=== PATIENT | female | born 1960 | race Caucasian/White ===

== ENCOUNTER 2017-06-12 12:23 | Emergency (ER) | payer OTHER ==
[2017-06-12 12:32] VITALS: TEMP 98.1
[2017-06-12] MEDS ORDERED: NS 1,000 ML IV ONE (13:07)
[2017-06-12] MEDS ORDERED: HYDROmorphONE/DILAUDID 1 MG/ML INJ IVP ONE (13:07)
[2017-06-12] MEDS ORDERED: ONDANSETRON 4 MG/2 ML VIAL IVP ONE (13:07)
--- NOTE | 2017-06-12 13:13 | EDPHY ---
H & P Stated Complaint: pt with abd pain Time Seen by Provider: 06/12/17 12:58 HPI/ROS: CHIEF COMPLAINT: Abdominal pain HISTORY OF PRESENT ILLNESS: The patient is a 56-year-old female who comes to the emergency department complaining of left upper quadrant abdominal pain for the last 6 hr. 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 She also has a history of lupus and COPD. She is not currently on steroids. She states that she has vomited twice white frothy today. She states that she feels like she needs to have a bowel movement but cannot. She has not passed gas today but did yesterday. No fever. No distension. No tenderness. She has a history of hysterectomy and tubal ligation as well as cholecystectomy. She states that most of her previous medical treatment was done in [place]. I am able to view was CT report from 18 months ago that states her chief complaint had been abdominal pain for a year as well as bloody stool. She states that she has not had any blood in her stool today. She has not had a fever. She denies history of hemorrhoids. REVIEW OF SYSTEMS: Constitutional: denies: chills, fever, recent illness, recent injury EENTM: denies: blurred vision, double vision, nose congestion Respiratory: denies: cough, shortness of breath Cardiac: denies: chest pain, irregular heart rate, lightheadedness, palpitations Gastrointestinal/Abdominal: See HPI Genitourinary: denies: dysuria, frequency, hematuria, pain Musculoskeletal: denies: joint pain, muscle pain Skin: denies: lesions, rash, jaundice, bruising Neurological: denies: headache, numbness, paresthesia, tingling, dizziness, weakness Hematologic/Lymphatic: denies: blood clots, easy bleeding, easy bruising Immunologic/allergic: denies: HIV/AIDS, transplant EXAM: GENERAL: Well-appearing, well-nourished and in no acute distress. HEAD: Atraumatic, normocephalic. EYES: Pupils equal round and reactive to light, extraocular movements intact, sclera anicteric, conjunctiva are normal. ENT: TMs normal, nares patent, oropharynx clear without exudates. Moist mucous membranes. NECK: Normal range of motion, supple without lymphadenopathy or JVD. LUNGS: Breath sounds clear to auscultation bilaterally and equal. No wheezes rales or rhonchi. HEART: Regular rate and rhythm without murmurs, rubs or gallops. ABDOMEN: Soft, nontender, normoactive bowel sounds. No guarding, no rebound. No masses appreciated. BACK: No CVA tenderness, no spinal tenderness, step-offs or deformities EXTREMITIES: Normal range of motion, no pitting or edema. No clubbing or cyanosis. NEUROLOGICAL: Cranial nerves II through XII grossly intact. Normal speech, normal gait. 5/5 strength, normal movement in all extremities, normal sensation PSYCH: Normal mood, normal affect. SKIN: Warm, dry, normal turgor, no visible rashes or lesions. Source: Patient Exam Limitations: No limitations - Personal History Current Tetanus/Diphtheria Vaccine: Yes - Medical/Surgical History Hx Asthma: No Hx Chronic Respiratory Disease: Yes Hx Diabetes: No Hx Cardiac Disease: No Hx Renal Disease: No Hx Cirrhosis: No Hx Alcoholism: No Hx HIV/AIDS: No Hx Splenectomy or Spleen Trauma: No Other PMH: Chronic abdominal pain, aortic bypass/lupus/copd. Hysterectomy, tubal ligation, cholecystectomy - Family History Significant Family History: No pertinent family hx - Social History Smoking Status: Current every day smoker Alcohol Use: Sober Constitutional: Initial Vital Signs Temperature (C) 36.7 C 06/12/17 12:29 Heart Rate 105 H 06/12/17 12:29 Respiratory Rate 20 06/12/17 12:29 Blood Pressure 92/71 L 06/12/17 12:29 O2 Sat (%) 96 06/12/17 12:29 O2 Delivery Mode Room Air Allergies/Adverse Reactions: alendronate sodium [From Fosamax] Allergy (Verified 06/12/17 12:25) erythromycin base Allergy (Verified 06/12/17 12:25) Penicillins Allergy (Verified 06/12/17 12:25) risedronate sodium [From Actonel] Allergy (Verified 06/12/17 12:25) Home Medications: Medication Instructions Recorded Acyclovir 06/12/17 Atorvastatin Calcium 06/12/17 Bromfenac Sodium 06/12/17 DIAZEPAM 06/12/17 Doxycycline Hyclate 06/12/17 Dulera 100 Mcg/5 Mcg Inhaler 06/12/17 Hydroxychloroquine Sulfate 06/12/17 Plavix 01/04/18 Ventolin Hfa 06/12/17 traMADol 06/12/17 Medical Decision Making - Diagnostics Imaging Results: Imaging Impressions Abdomen CT 06/12/17 13:07 Impression: 1. Moderate constipation. 2. Status post cholecystectomy with mild prominence of the common bile duct and intrahepatic biliary duct. 3. Left renal atrophy. No evidence for hydronephrosis. 4. Evidence of atherosclerotic disease in the abdominal aorta without evidence for aneurysmal dilatation and evidence of prior surgery. Results called and discussed with Dr. Chandu Salazar on 06/12/2017, 14:29. Imaging: Discussed imaging studies w/ bingo caller Radiologist ED Course/Re-evaluation: 2:30 p.m. we discussed the lab and imaging results. The patient feels reassured. Her abdominal exam is benign. She states that this is often what happened and she is told that is from lupus. She confirms that she has had pain chronically in her abdomen for years the tends to wax and wane. She has not yet provided a urine sample. We will continue to hydrate and observe. 3:50 p.m. the patient's abdominal exam remains benign. She has a small amount of blood in her urine. She will follow up with her primary doctor. No sign of infection. Differential Diagnosis: Partial list of the Differential diagnosis considered include but were not limited to; peptic ulcer disease, obstruction, the aneurysm and although unlikely based on the history and physical exam, I also considered appendicitis , perforated ulcer, urinary tract infection, proctitis. I discussed these differential diagnoses and the plan with the patient as well as the usual and expected course. The patient understands that the diagnosis is provisional and that in medicine we are not always correct and that further workup is often warranted. Usual and customary warnings were given. All of the patient's questions were answered. The patient was instructed to return to the emergency department should the symptoms at all worsen or return, otherwise to followup with the physician as we discussed. - Data Points Laboratory Results: Laboratory Results 06/12/17 13:22 06/12/17 13:22 06/12/17 06/12/17 06/12/17 15:25 13:22 13:22 WBC RBC Hgb Hct MCV MCH MCHC RDW Plt Count MPV Neut % (Auto) Lymph % (Auto) Cole % (Auto) Eos % (Auto) Baso % (Auto) Nucleat RBC Rel Count Absolute Neuts (auto) Absolute Lymphs (auto) Absolute Monos (auto) Absolute Eos (auto) Absolute Basos (auto) Absolute Nucleated RBC Immature Gran % Immature Gran # PT 11.9 SEC L SEC (12.0-15.0) INR 0.86 (0.83-1.16) APTT 23.6 SEC SEC (23.0-38.0) Sodium 142 mEq/L mEq/L (134-144) Potassium 4.7 mEq/L mEq/L (3.5-5.2) Chloride 110 mEq/L mEq/L (97-110) Carbon Dioxide 23 mEq/l mEq/l (22-31) Anion Gap 9 mEq/L mEq/L (8-16) BUN 13 mg/dL mg/dL (7-23) Creatinine 0.8 mg/dL mg/dL (0.6-1.0) Estimated GFR > 60 Glucose 105 mg/dL H mg/dL (70-100) Calcium 9.6 mg/dL mg/dL (8.5-10.4) Total Bilirubin 0.3 mg/dL mg/dL (0.1-1.4) Conjugated Bilirubin 0.2 mg/dL mg/dL (0.0-0.5) Unconjugated Bilirubin 0.1 mg/dL mg/dL (0.0-1.1) AST 40 IU/L IU/L (14-46) ALT 61 IU/L H IU/L (9-52) Alkaline Phosphatase 100 IU/L IU/L (38-126) Total Protein 6.3 g/dL g/dL (6.3-8.2) Albumin 3.9 g/dL g/dL (3.5-5.0) Lipase 183 IU/L IU/L (23-300) Urine Color PALE YELLOW Urine Appearance CLEAR Urine pH 8.0 H (5.0-7.5) Ur Specific [place] 1.033 H (1.002-1.030) Urine Protein NEGATIVE (NEGATIVE) Urine Ketones NEGATIVE (NEGATIVE) Urine Blood NEGATIVE (NEGATIVE) Urine Nitrate NEGATIVE (NEGATIVE) Urine Bilirubin NEGATIVE (NEGATIVE) Urine Urobilinogen NEGATIVE EU EU (0.2-1.0) Ur Leukocyte Esterase NEGATIVE (NEGATIVE) Urine RBC 5-10 /hpf H /hpf (0-3) Urine WBC 1-3 /hpf /hpf (0-3) Ur Epithelial Cells TRACE /lpf /lpf (NONE-1+) Urine Glucose NEGATIVE (NEGATIVE) 06/12/17 13:22 WBC 15.09 10^3/uL H 10^3/uL (3.80-9.50) RBC 4.86 10^6/uL 10^6/uL (4.18-5.33) Hgb 15.9 g/dL g/dL (12.6-16.3) Hct 45.3 % % (38.0-47.0) MCV 93.2 fL fL (81.5-99.8) MCH 32.7 pg pg (27.9-34.1) MCHC 35.1 g/dL g/dL (32.4-36.7) RDW 11.9 % % (11.5-15.2) Plt Count 250 10^3/uL 10^3/uL (150-400) MPV 10.1 fL fL (8.7-11.7) Neut % (Auto) 87.4 % H % (39.3-74.2) Lymph % (Auto) 8.0 % L % (15.0-45.0) Cole % (Auto) 3.7 % L % (4.5-13.0) Eos % (Auto) 0.1 % L % (0.6-7.6) Baso % (Auto) 0.3 % % (0.3-1.7) Nucleat RBC Rel Count 0.0 % % (0.0-0.2) Absolute Neuts (auto) 13.18 10^3/uL H 10^3/uL (1.70-6.50) Absolute Lymphs (auto) 1.21 10^3/uL 10^3/uL (1.00-3.00) Absolute Monos (auto) 0.56 10^3/uL 10^3/uL (0.30-0.80) Absolute Eos (auto) 0.01 10^3/uL L 10^3/uL (0.03-0.40) Absolute Basos (auto) 0.05 10^3/uL 10^3/uL (0.02-0.10) Absolute Nucleated RBC 0.00 10^3/uL 10^3/uL (0-0.01) Immature Gran % 0.5 % % (0.0-1.1) Immature Gran # 0.08 10^3/uL 10^3/uL (0.00-0.10) PT INR APTT Sodium Potassium Chloride Carbon Dioxide Anion Gap BUN Creatinine Estimated GFR Glucose Calcium Total Bilirubin Conjugated Bilirubin Unconjugated Bilirubin AST ALT Alkaline Phosphatase Total Protein Albumin Lipase Urine Color Urine Appearance Urine pH Ur Specific [place] Urine Protein Urine Ketones Urine Blood Urine Nitrate Urine Bilirubin Urine Urobilinogen Ur Leukocyte Esterase Urine RBC Urine WBC Ur Epithelial Cells Urine Glucose Medications Given: Discontinued Medications Hydromorphone HCl (Dilaudid) 0.5 mg IVP EDNOW ONE Stop: 06/12/17 13:08 Last Admin: 06/12/17 13:24 Dose: 0.5 mg Sodium Chloride (Ns) 1,000 mls @ 0 mls/hr IV EDNOW ONE; Wide Open PRN Reason: Protocol Stop: 06/12/17 13:08 Last Admin: 06/12/17 13:24 Dose: 1,000 mls Ondansetron HCl (Zofran) 4 mg IVP EDNOW ONE Stop: 06/12/17 13:08 Last Admin: 06/12/17 13:24 Dose: 4 mg Departure - Departure Disposition: Home, Routine, Self-Care Clinical Impression: Abdominal pain Qualifiers: Abdominal location: left upper quadrant Qualified Code(s): R10.12 - Left upper quadrant pain Condition: Fair Instructions: Abdominal Pain (ED) Referrals: DANIELLA BOURGEOIS [Other] - As per Instructions
[2017-06-12 13:35] LABS: PLATELET COUNT 250 10^3/uL (150-400)
[2017-06-12 13:44] LABS: INR 0.86 (0.83-1.16); PROTIME(PATIENT) 11.9 SEC (12.0-15.0)
[2017-06-12] MEDS ORDERED: IOPAMIDOL (ISOVUE-300) 100 ML BTL ONE (13:56)
[2017-06-12 14:18] VITALS: RESP 16
[2017-06-12 16:19] VITALS: BP 124/68; PULSE 80; O2SAT 96
== END 2017-06-12 16:16 | disposition home or self-care (01) ==
DX: R10.12 Left upper quadrant pain (principal); F17.200 Nicotine dependence, unspecified, uncomplicated; E86.9 Volume depletion, unspecified; Z90.49 Acquired absence of other specified parts of digestive tract; Z98.51 Tubal ligation status
CPT/HCPCS: 74177; 96361; 96374; 96375; 99285; J1170; J2405; Q9967